=== PATIENT | male | born 1980 | race Two or more races ===

== ENCOUNTER 2023-07-23 18:26 | Inpatient (IN) ==
[2023-07-23 20:02] LABS: ABS Basophils 0.1 10^3/uL (0.0-0.1); ABS Lymphocytes 1.2 10^3/uL (1.0-4.8); ABS Monocytes 1.2 10^3/uL (0.0-1.1); Hematocrit 43.6 % (38-53); Lymphocyte % 9.6 %; Mean Corpuscular Hemoglobin 30.2 pg (27-33); Mean Corpuscular Hgb Conc 34.3 g/dL (31-36); Mean Corpuscular Volume 87.9 fL (80-97); Platelet Count 270 10^3/uL (150-450); Red Blood Count 4.95 10^6/uL (4.06-5.63); Red Cell Distribution Width 13.7 % (12-17); White Blood Count 12.5 10^3/uL (3.6-10.2)
[2023-07-23] MEDS: Dexamethasone IV 4 MG/ML VIAL 1 ml VIAL IV SLOW PU ONE (20:03)
[2023-07-23] MEDS: Morphine 4 MG/ML VIAL (1 ml) IV ONE (20:03)
[2023-07-23 20:09] LABS: Urine Appearance Turbid; Urine Bilirubin Negative (Negative); Urine Blood 3+ (Negative); Urine Color Yellow; Urine Glucose Negative (Negative); Urine Ketones Trace (Negative); Urine Nitrite Negative (Negative); Urine Protein 1+ (>=30 mg/dL) (Negative); Urine Specific Gravity 1.023 (1.002-1.030); Urine Urobilinogen Negative (Negative)
[2023-07-23] MEDS: Lactated Ringers 1000 ml BAG 1,000 ML IV ONE (20:12)
[2023-07-23 20:23] LABS: Urine Benzodiazepine Screen Presumptive Positive (None Detect); Urine Cannabinoids Screen None Detected (None Detect); Urine Opiates Screen None Detected (None Detect)
[2023-07-23 20:25] LABS: Urine Amorphous Crystals Present /HPF (Absent); Urine Bacteria Absent /HPF (Absent); Urine Red Blood Cell 1+(3-5/hpf) /HPF (0-Trace); Urine White Blood Cell 1+(6-10/hpf) /HPF (0-Trace)
[2023-07-23 20:30] LABS: ALT 140 U/L (7-52); AST 538 U/L (13-39); Albumin 4.5 g/dL (3.2-5.2); Albumin/Globulin Ratio 1.7 (1-3); Alcohol, S < 13 mg/dL (<13); Alkaline Phosphatase 59 U/L (35-149); Anion Gap 14 mmol/L (2-16); Blood Urea Nitrogen 53 mg/dL (6-24); CO2 Carbon Dioxide 25 mmol/L (22-32); Calcium 8.8 mg/dL (8.6-10.3); Chloride 97 mmol/L (101-111); Creatinine, Serum 2.52 mg/dL (0.67-1.17); Globulin 2.6 g/dL (2-4); Glucose 85 mg/dL (70-100); Potassium 4.2 mmol/L (3.5-5.0); Sodium 136 mmol/L (135-145); Total Bilirubin 1.4 mg/dL (0.2-1.0); Total Protein 7.1 g/dL (6.4-8.9); eGFR CKD-EPI 31.2 (>60)
[2023-07-23 20:43] LABS: C Reactive Protein 172.53 mg/L (<8.01)
[2023-07-23 20:44] LABS: TSH Ultra Thyroid Stim Horm 5.97 mcIU/mL (0.34-5.60)
[2023-07-24 01:26] LABS: Creatine Kinase 51130 U/L (10-223)
[2023-07-24] MEDS: NS 0.9% 1000 ml BAG 1,000 ML IV SCH (02:41)
[2023-07-24] MEDS: Morphine 4 MG/ML VIAL (1 ml) IV PRN (02:54)
[2023-07-24 05:52] LABS: Direct Bilirubin 0.3 mg/dL (0.03-0.18); Indirect Bilirubin 1.1 mg/dL (0.3-1.0); Magnesium 2.1 mg/dL (1.9-2.7); Phosphorus 3.8 mg/dL (2.5-5.0)
[2023-07-24 06:27] LABS: ABS Lymphocytes 0.8 10^3/uL (1.0-4.8); ABS Monocytes 0.8 10^3/uL (0.0-1.1); ABS Neutrophils 10.4 10^3/uL (1.5-7.6); ABS Nucleated RBC 0.01 10^3/ul; Hematocrit 37.4 % (38-53); Lymphocyte % 6.3 %; Mean Corpuscular Hemoglobin 30.4 pg (27-33); Mean Corpuscular Hgb Conc 34.8 g/dL (31-36); Mean Corpuscular Volume 87.2 fL (80-97); Nucleated Red Blood Cells % 0.1 %/100WBC (0.0-0.8); Platelet Count 242 10^3/uL (150-450); Red Blood Count 4.28 10^6/uL (4.06-5.63); Red Cell Distribution Width 13.5 % (12-17)
[2023-07-24] MEDS ORDERED: Albuterol HFA INHALER 8 gm MDI INH PRN (06:35)
[2023-07-24 06:47] LABS: Calcium 8.1 mg/dL (8.6-10.3); Creatinine, Serum 3.25 mg/dL (0.67-1.17); Potassium 4.9 mmol/L (3.5-5.0)
[2023-07-24 06:59] LABS: Albumin 3.9 g/dL (3.2-5.2); Albumin/Globulin Ratio 1.6 (1-3); Direct Bilirubin 0.2 mg/dL (0.03-0.18); Globulin 2.5 g/dL (2-4); Magnesium 2.1 mg/dL (1.9-2.7); Total Bilirubin 1.2 mg/dL (0.2-1.0); Total Protein 6.4 g/dL (6.4-8.9)
[2023-07-24] MEDS ORDERED: LORazepam 2 mg VIAL 1 ml IV PUSH SCH (09:00)
[2023-07-24] MEDS: Lactated Ringers 1000 ml BAG 1,000 ML IV SCH ×3 (09:57→16:31)
[2023-07-24] MEDS: Multivitamins/Minerals TAB PO SCH (10:09)
[2023-07-24] MEDS: Thiamine 100 MG/ML 2 ml VIAL (200 mg) IM ONE (10:21)
[2023-07-24 11:10] LABS: Erythrocyte Sed Rate 23 mm/Hr (0-14)
[2023-07-24 11:10] LABS: Urine Osmo 428 mOsm/kg (150-1150)
[2023-07-24 17:43] LABS: Calcium 7.9 mg/dL (8.6-10.3); Creatinine, Serum 3.48 mg/dL (0.67-1.17); Potassium 4.3 mmol/L (3.5-5.0); eGFR CKD-EPI 21.2 (>60)
[2023-07-24] MEDS ORDERED: Dextrose 50% Syringe 50 ml 25 GM/50 ML SYRINGE IV PUSH PRN (18:08)
[2023-07-25] MEDS: Benzocaine/Menthol LOZ MT PRN (00:05)
[2023-07-25 06:27] LABS: Hematocrit 28.7 % (38-53); Mean Corpuscular Hemoglobin 30.1 pg (27-33); Mean Corpuscular Hgb Conc 34.7 g/dL (31-36); Mean Corpuscular Volume 86.7 fL (80-97); Mean Platelet Volume 7.5 fL (7.5-11.2); Platelet Count 188 10^3/uL (150-450); Red Blood Count 3.31 10^6/uL (4.06-5.63); Red Cell Distribution Width 13.6 % (12-17); White Blood Count 11.6 10^3/uL (3.6-10.2)
[2023-07-25 06:35] LABS: ABS Lymphocytes 1.1 10^3/uL (1.0-4.8); ABS Monocytes 1.6 10^3/uL (0.0-1.1); Lymphocyte % 9.2 %
[2023-07-25 07:23] LABS: Calcium 8.1 mg/dL (8.6-10.3); Creatinine, Serum 3.87 mg/dL (0.67-1.17); Potassium 4.5 mmol/L (3.5-5.0); eGFR CKD-EPI 18.6 (>60)
[2023-07-25 07:24] LABS: Albumin 3.1 g/dL (3.2-5.2); Albumin/Globulin Ratio 1.6 (1-3); Globulin 1.9 g/dL (2-4); Magnesium 2.2 mg/dL (1.9-2.7); Phosphorus 3.6 mg/dL (2.5-5.0); Total Bilirubin 0.6 mg/dL (0.2-1.0)
[2023-07-25] MEDS ORDERED: Lactated Ringers 1000 ml BAG 1,000 ML IV SCH (11:00)
[2023-07-25] MEDS: Lactated Ringers 1000 ml BAG 1,000 ML IV SCH (16:11)
[2023-07-25 17:16] LABS: Calcium 8.1 mg/dL (8.6-10.3); Creatinine, Serum 3.62 mg/dL (0.67-1.17); Potassium 4.3 mmol/L (3.5-5.0); eGFR CKD-EPI 20.2 (>60)
[2023-07-26 06:17] LABS: ABS Eosinophils 0.3 10^3/uL (0.0-0.5); ABS Lymphocytes 1.2 10^3/uL (1.0-4.8); ABS Monocytes 1.1 10^3/uL (0.0-1.1); ABS Neutrophils 6.1 10^3/uL (1.5-7.6); ABS Nucleated RBC 0.01 10^3/ul; Eosinophil % 3.1 %; Hematocrit 26.9 % (38-53); Hemoglobin 9.4 g/dL (13.2-16.3); Lymphocyte % 13.9 %; Mean Corpuscular Hemoglobin 30.7 pg (27-33); Mean Corpuscular Hgb Conc 34.9 g/dL (31-36); Mean Corpuscular Volume 87.9 fL (80-97); Mean Platelet Volume 7.6 fL (7.5-11.2); Nucleated Red Blood Cells % 0.1 %/100WBC (0.0-0.8); Platelet Count 188 10^3/uL (150-450); Red Blood Count 3.06 10^6/uL (4.06-5.63); Red Cell Distribution Width 13.4 % (12-17); White Blood Count 8.6 10^3/uL (3.6-10.2)
[2023-07-26 06:40] LABS: Calcium 8.2 mg/dL (8.6-10.3); Creatinine, Serum 3.23 mg/dL (0.67-1.17); Potassium 4.2 mmol/L (3.5-5.0); eGFR CKD-EPI 23.2 (>60)
[2023-07-26 06:58] LABS: Albumin 3.1 g/dL (3.2-5.2); Albumin/Globulin Ratio 1.8 (1-3); Globulin 1.7 g/dL (2-4); Magnesium 2.1 mg/dL (1.9-2.7); Total Bilirubin 0.7 mg/dL (0.2-1.0); Total Protein 4.8 g/dL (6.4-8.9)
[2023-07-26] MEDS: Lactated Ringers 1000 ml BAG 1,000 ML IV SCH (09:22)
[2023-07-27 06:22] LABS: ABS Basophils 0.1 10^3/uL (0.0-0.1); ABS Eosinophils 0.6 10^3/uL (0.0-0.5); ABS Lymphocytes 1.6 10^3/uL (1.0-4.8); ABS Monocytes 1.1 10^3/uL (0.0-1.1); ABS Neutrophils 5.7 10^3/uL (1.5-7.6); Eosinophil % 6.4 %; Hematocrit 28.7 % (38-53); Lymphocyte % 17.9 %; Mean Corpuscular Hemoglobin 30.5 pg (27-33); Mean Corpuscular Hgb Conc 34.8 g/dL (31-36); Mean Corpuscular Volume 87.5 fL (80-97); Mean Platelet Volume 7.2 fL (7.5-11.2); Platelet Count 209 10^3/uL (150-450); Red Blood Count 3.28 10^6/uL (4.06-5.63); Red Cell Distribution Width 13.4 % (12-17); White Blood Count 9.1 10^3/uL (3.6-10.2)
[2023-07-27 07:14] LABS: Calcium 8.6 mg/dL (8.6-10.3); Creatinine, Serum 2.29 mg/dL (0.67-1.17); Potassium 4.2 mmol/L (3.5-5.0)
[2023-07-27 07:17] LABS: Albumin 3.3 g/dL (3.2-5.2); Albumin/Globulin Ratio 1.7 (1-3); Globulin 1.9 g/dL (2-4); Total Bilirubin 0.9 mg/dL (0.2-1.0); Total Protein 5.2 g/dL (6.4-8.9)
[2023-07-27 17:45] LABS: Creatinine, Serum 1.99 mg/dL (0.67-1.17); eGFR CKD-EPI 41.4 (>60)
[2023-07-28 07:19] LABS: ABS Eosinophils 0.6 10^3/uL (0.0-0.5); ABS Lymphocytes 1.6 10^3/uL (1.0-4.8); ABS Neutrophils 6.8 10^3/uL (1.5-7.6); Eosinophil % 5.6 %; Hematocrit 30.9 % (38-53); Hemoglobin 10.9 g/dL (13.2-16.3); Lymphocyte % 15.7 %; Mean Corpuscular Hemoglobin 30.7 pg (27-33); Mean Corpuscular Hgb Conc 35.1 g/dL (31-36); Mean Corpuscular Volume 87.4 fL (80-97); Mean Platelet Volume 7.3 fL (7.5-11.2); Platelet Count 245 10^3/uL (150-450); Red Blood Count 3.54 10^6/uL (4.06-5.63); Red Cell Distribution Width 13.7 % (12-17); White Blood Count 10.1 10^3/uL (3.6-10.2)
[2023-07-28 07:57] LABS: Creatinine, Serum 1.81 mg/dL (0.67-1.17); Potassium 4.1 mmol/L (3.5-5.0); eGFR CKD-EPI 46.4 (>60)
[2023-07-28 08:03] LABS: Albumin 3.4 g/dL (3.2-5.2); Albumin/Globulin Ratio 1.6 (1-3); Globulin 2.1 g/dL (2-4); Total Bilirubin 1.2 mg/dL (0.2-1.0); Total Protein 5.5 g/dL (6.4-8.9)
[2023-07-28 10:02] VITALS: BP 135/77
== END 2023-07-28 13:11 | disposition home or self-care (01) | DRG 351 ==
LOC: ED 18:26 → EDHOLD 18:26 → SUATTDRO 07-24 02:52 → SSU 07-24 12:44
PROVIDERS: ADMIT Internal Medicine; ATTEND Internal Medicine